=== PATIENT | female | born 1975 | race Two or more races ===

== ENCOUNTER 2020-03-23 11:41 | Emergency (ER) | payer BC ==
[~2020-03-23] VITALS: Ht 152.4 cm; Wt 63.0 kg
[2020-03-23 11:49] VITALS: BP 114/74
--- NOTE | 2020-03-23 12:05 | NUR ---
Patient discharged to home in stable condition. Written and verbal after care instructions given. Patient verbalizes understanding of instruction.
== END 2020-03-23 12:05 | disposition home or self-care (01) ==
LOC: ER 11:49
DX: S83.8X2A Sprain of other specified parts of left knee, initial encounter (principal); W01.0XXA Fall on same level from slipping, tripping and stumbling without subsequent striking against object, initial encounter; Y93.89 Activity, other specified; Y92.89 Other specified places as the place of occurrence of the external cause; Y99.8 Other external cause status